=== PATIENT | male | born 1985 | race African-American/Black ===

== ENCOUNTER 2018-06-30 22:22 | Emergency (ER) | payer MEDICAID ==
[~2018-06-30] VITALS: Ht 182.9 cm; Wt 122.5 kg
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
[2018-06-30] MEDS ORDERED: Norco 5mg/325mg tab ORAL ONE (23:00)
[2018-06-30 23:19] VITALS: BP 171/104
[2018-07-01] MEDS ORDERED: IBUPROFEN600 MG ORAL
[2018-07-01 00:08] VITALS: BP 160/90
--- NOTE | 2018-07-02 10:29 | Diagnostic Imaging Report ---
Indication: Trauma, pain Technique: 4 views of the lumbar spine Comparison: None Findings: Bony alignment is normal. Vertebral body heights are preserved. There is degenerative disc narrowing at L5-S1. Remaining disc spaces are preserved. There is degenerative facet arthrosis at L4-5 and L5-S1. There is also mild degenerative narrowing of the sacroiliac joints. Impression: Degenerative changes, as described No acute bony trauma
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
--- NOTE | 2018-07-02 16:04 | Diagnostic Imaging Report ---
Indication: Pain, trauma Technique: 3 views right foot Comparison: none Findings: No acute fractures. No dislocations. The joint spaces are preserved. Impression: Negative
== END 2018-07-01 00:08 | disposition home or self-care (01) ==
LOC: EMR 22:39
DX: S43.402A Unspecified sprain of left shoulder joint, initial encounter (principal); S93.601A Unspecified sprain of right foot, initial encounter; S39.012A Strain of muscle, fascia and tendon of lower back, initial encounter; V43.52XA Car driver injured in collision with other type car in traffic accident, initial encounter; Y92.410 Unspecified street and highway as the place of occurrence of the external cause
CPT/HCPCS: 72110; 99283